=== PATIENT | male | born 1965 | race Caucasian/White ===

== ENCOUNTER 2020-03-21 23:35 | Emergency (ER) | payer OTHER ==
[~2020-03-21] VITALS: Ht 180.3 cm; Wt 86.2 kg
== END 2020-03-22 12:37 | disposition home or self-care (01) ==
LOC: ER 23:35
DX: U07.1 COVID-19 (principal); R05 Cough; R50.9 Fever, unspecified; R19.7 Diarrhea, unspecified; E86.0 Dehydration